=== PATIENT | male | born 1960 | race Caucasian/White ===

== ENCOUNTER 2019-05-28 20:07 | Emergency (ER) | payer BC ==
--- NOTE | 2019-05-28 21:56 | EDM.PDOC ---
ED HPI GENERAL MEDICAL PROBLEM - General Chief Complaint: Upper Extremity Injury/Pain Stated Complaint: TRIPPED AND BROKE ARM Time Seen by Provider: 05/28/19 21:30 Source of Information: Reports: Patient, Family History Limitations: Reports: No Limitations - History of Present Illness INITIAL COMMENTS - FREE TEXT/NARRATIVE: 59-year-old male was getting stung by wasps, tried to run away and tripped and fell on his right hand and jammed his hand and it was right lateral chest. He has swelling in his hand and is concerned he may be broken, he is also concerned he may have broken a rib. He has no shortness of breath but some pain with breathing. No other injury, denies abdominal pain or head injury. Onset: Sudden Duration: Hour(s): (Within the last 2 hours) Location: Reports: Chest, Upper Extremity, Right Associated Symptoms: Reports: Chest Pain. Denies: Cough, Malaise, Nausea/ Vomiting, Shortness of Breath, Weakness right hand Pain Score (Numeric/FACES): 6 - Related Data Allergies Allergy/AdvReac Type Severity Reaction Status Date / Time Penicillins Allergy Hives Verified 05/28/19 21:32 Home Meds: Home Meds Aspirin 81 mg PO DAILY 05/28/19 [History] Metoprolol Succinate 50 mg PO DAILY 05/28/19 [History] atorvaSTATin [Lipitor] 40 mg PO BEDTIME 05/28/19 [History] Past Medical History Cardiovascular History: Reports: Angina, CAD, High Cholesterol, Hypertension Musculoskeletal History: Reports: Arthritis - Past Surgical History GI Surgical History: Reports: Colonoscopy Social & Family History - Tobacco Use Smoking Status *Q: Former Smoker Used Tobacco, but Quit: Yes Month/Year Tobacco Last Used: 2011 - Caffeine Use Caffeine Use: Reports: Coffee - Alcohol Use Days Per Week of Alcohol Use: 2 Number of Drinks Per Day: 1 Total Drinks Per Week: 2 - Recreational Drug Use Recreational Drug Use: No Review of Systems - Review of Systems Review Of Systems: See Below Constitutional: Denies: Fever Eyes: Reports: No Symptoms Respiratory: Reports: Pleuritic Chest Pain. Denies: Shortness of Breath GI/Abdominal: Denies: Abdominal Pain, Nausea, Vomiting Musculoskeletal: Reports: Hand Pain (Right side) Skin: Reports: Bruising (Slight bruising is developing in the top of the right hand) Neurological: Reports: No Symptoms ED EXAM, GENERAL - Physical Exam Exam: See Below Exam Limited By: No Limitations General Appearance: Alert, No Apparent Distress Head: Atraumatic Neck: Normal Inspection Respiratory/Chest: No Respiratory Distress, Lungs Clear, Other (Patient does have tenderness to the lateral right chest, no crepitus) Cardiovascular: Regular Rate, Rhythm Extremities: Other (Right hand has some swelling and tenderness over the fourth and fifth medical carpal, especially on the top of the hand. No significant deformity.) Course - Vital Signs Last Recorded V/S: Last Vital Signs Temp 96.8 F 05/28/19 21:37 Pulse 86 05/28/19 21:37 Resp 18 05/28/19 21:37 BP 163/104 H 05/28/19 21:37 Pulse Ox 96 05/28/19 21:37 - Re-Assessments/Exams Free Text/Narrative Re-Assessment/Exam: 05/28/19 21:55 A right hand x-ray and two-view chest x-ray were obtained. They were both negative. A three-inch Calvin wrap was applied to the hand and the patient was reassured that there were no fractures in his hand. A subtle rib fracture is possible but treatment is conservative with pain medication and recheck if needed. Patient will increase activity as tolerated, icing down sore spots and using anti-inflammatories for pain control. Departure - Departure Time of Disposition: 22:11 Disposition: Home, Self-Care 01 Condition: Good Clinical Impression: Contusion of right hand Qualifiers: Encounter type: initial encounter Qualified Code(s): S60.221A - Contusion of right hand, initial encounter Contusion, chest wall Qualifiers: Encounter type: initial encounter Laterality: right Qualified Code(s): S20.211A - Contusion of right front wall of thorax, initial encounter - Discharge Information Instructions: Contusion, [id number] Referrals: PCP,None [Primary Care Provider] - Forms: ED Department Discharge Care Plan Goals: Wrap hand for comfort, ice sore areas and anti-inflammatories should help. Increase activity as tolerated and recheck in 5-7 days if not improving satisfactorily. Return sooner if worsening such as breathing difficulties or other concerns.
--- NOTE | 2019-05-28 22:21 | CRLCR ---
INDICATION: Fall, injury TECHNIQUE: Chest 2 views. COMPARISON: None FINDINGS: Cardiovascular and mediastinum: Heart size and vasculature are normal in caliber and appearance. Mediastinum is within normal limits. Lungs and pleural spaces: Minimal linear atelectasis or scarring at the left lung base. No sign of pleural effusion. No pneumothorax. Bones and soft tissues: No significant findings. IMPRESSION: Minimal linear atelectasis or scarring at the left lung base. Dictated by Becky Mcdowell MD @ May 28 2019 10:16PM Signed by Dr. Becky Mcdowell @ May 28 2019 10:19PM
--- NOTE | 2019-05-28 22:23 | CRLCR ---
Indication: Fall with injury Technique: Three views right hand Comparison: None Findings: Bones: Alignment is normal. No fractures or bone lesions. 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 Soft tissues: Unremarkable. Impression: No acute abnormality. 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 Dictated by Becky Mcdowell MD @ May 28 2019 10:19PM Signed by Dr. Becky Mcdowell @ May 28 2019 10:21PM
== END 2019-05-28 22:11 | disposition home or self-care (01) ==
LOC: JP.ED 20:07
DX: S60.221A Contusion of right hand, initial encounter (principal); S20.211A Contusion of right front wall of thorax, initial encounter; I10 Essential (primary) hypertension; E78.00 Pure hypercholesterolemia, unspecified; I25.10 Atherosclerotic heart disease of native coronary artery without angina pectoris; Z87.891 Personal history of nicotine dependence; Z79.899 Other long term (current) drug therapy; Z79.82 Long term (current) use of aspirin; Z88.0 Allergy status to penicillin; W01.0XXA Fall on same level from slipping, tripping and stumbling without subsequent striking against object, initial encounter
CPT/HCPCS: 71046; 73130-RT; 99283-25